=== PATIENT | male | born 1970 | race Hispanic/Latino ===

== ENCOUNTER 2022-12-15 10:31 | Observation (INO) | payer BC ==
[~2022-12-15] VITALS: Ht 172.7 cm; Wt 104.3 kg
[~2022-12-15 10:31] MED LIST: DEXAMETHASONE SOD PHOS INJ 4 MG/ML SDV ONE; KETOROLAC TROMETHAMINE 30 MG/ML VIAL ONE; LABETALOL HCL 5 MG/ML 20ML VIAL ONE; LIDOCAINE HCL 2% LOCAL INJ 5 ML SDV VIAL INJ ONE; METOCLOPRAMIDE HCL 10 MG/2ML VIAL ONE; ONDANSETRON HCL INJ 2MG/ML 2ML 2 MG/ML VIAL ONE; PROPOFOL IV EMULSION 10 MG/ML 20 ML VIAL ONE; ROCURONIUM BROMIDE 10 MG/ML 5ML VIAL IV ONE; SEVOFLURANE INHAL SOLN 250 ML PEN BTL ONE; SUCCINYLCHOLINE CHLORIDE 20 MG/ML 10ML VIAL ONE
[2022-12-15] MEDS ORDERED: ONDANSETRON HCL INJ 2MG/ML 2ML 2 MG/ML VIAL IV STA ×2 (11:04→13:19)
[2022-12-15] MEDS ORDERED: Morphine 4mg INJECTION 4 MG/ML INJ IV STA ×2 (11:04→13:19)
[2022-12-15] MEDS ORDERED: SODIUM CHLORIDE 0.9% 1000ML 1,000 ML IV STA (11:04)
[2022-12-15 11:14] LABS: BASOPHILS % 0.3 % (0.0-1.0); HEMATOCRIT 44.4 % (38.2-49.6); HEMOGLOBIN 15.6 g/dL (14.0-18.0); LYMPHOCYTES # (AUTO) 0.8 (1.0-3.2); LYMPHOCYTES % 6.6 % (18.0-39.1); MEAN CORPUSCULAR HEMOGLOBIN 28.1 pg (28-32); MEAN CORPUSCULAR HGB CONC 35.1 g/dL (31-35); MEAN CORPUSCULAR VOLUME 79.9 fL (81-99); MONOCYTES # (AUTO) 0.6 (0.2-0.8); MONOCYTES % 5.1 % (4.4-11.3); NEUTROPHILS # (AUTO) 10.1 (2.1-6.9); NEUTROPHILS % 87.7 % (38.7-80.0); PLATELET COUNT 183 x10e3/uL (140-360); RED BLOOD COUNT 5.56 x10e6/uL (4.3-5.7); WHITE BLOOD COUNT 11.45 x10e3/uL (4.8-10.8)
[2022-12-15 11:25] LABS: INR 1.08; PROTHROMBIN TIME 14.7 seconds (11.9-14.5)
[2022-12-15 11:26] LABS: PARTIAL THROMBOPLASTIN TIME 35.7 seconds (23.8-35.5)
[2022-12-15 11:34] LABS: ALBUMIN 4.3 g/dL (3.5-5.0); ALBUMIN/GLOBULIN RATIO 1.2 (0.8-2.0); ANION GAP 14.7 mmol/L (8-16); CALCIUM 9.5 mg/dL (8.4-10.2); CREATININE, SERUM 0.91 mg/dL (0.72-1.25); MAGNESIUM 1.6 MG/DL (1.3-2.1); POTASSIUM 3.7 mmol/L (3.5-5.1)
[2022-12-15] MEDS ORDERED: IOPAMIDOL 370 MG/ML 100 ML INFUS..BTL INJ ONE (12:28)
[2022-12-15] MEDS ORDERED: DICYCLOMINE HCL 20 MG/2 ML VIAL IM ONE (12:30)
[2022-12-15] MEDS ORDERED: SODIUM CHLORIDE 0.9% 1000ML 1,000 ML ONE (15:31)
[2022-12-15] MEDS: SODIUM CHLORIDE 0.9% 1000ML 1,000 ML IV SCH ×2 (15:32→21:35)
[2022-12-15 16:00] VITALS: BP 134/75; PULSE 58; PULSE 59; RESP 16; TEMP 98; O2SAT 98
[2022-12-15 16:26] VITALS: BP 129/68; PULSE 66; RESP 22; TEMP 98.7; O2SAT 96
[2022-12-15] MEDS: ONDANSETRON HCL INJ 2MG/ML 2ML 2 MG/ML VIAL IV PRN ×2 (18:11→22:25)
[2022-12-15] MEDS: Morphine 4mg INJECTION 4 MG/ML INJ IV PRN ×2 (18:12→22:25)
[2022-12-15 20:00] VITALS: BP 128/70; PULSE 72; RESP 18; TEMP 99; O2SAT 95
[2022-12-16] VITALS (7 sets, daily range): BP systolic 126–132; BP diastolic 67–76; PULSE 68–88; RESP 16–20; TEMP 97.7–98.9; O2SAT 93–100
[2022-12-16 00:11] LABS: CREATINE KINASE 159 IU/L (30-200)
[2022-12-16] MEDS: ONDANSETRON HCL INJ 2MG/ML 2ML 2 MG/ML VIAL IV PRN (02:51)
[2022-12-16] MEDS: Morphine 4mg INJECTION 4 MG/ML INJ IV PRN (02:51)
[2022-12-16 06:40] LABS: BASOPHILS % 0.2 % (0.0-1.0); EOSINOPHILS # (AUTO) 0.1 (0.0-0.4); EOSINOPHILS % 0.6 % (0.0-6.0); HEMATOCRIT 40.7 % (38.2-49.6); HEMOGLOBIN 14.2 g/dL (14.0-18.0); LYMPHOCYTES # (AUTO) 1.4 (1.0-3.2); MEAN CORPUSCULAR HEMOGLOBIN 28.3 pg (28-32); MEAN CORPUSCULAR HGB CONC 34.9 g/dL (31-35); MEAN CORPUSCULAR VOLUME 81.2 fL (81-99); MONOCYTES # (AUTO) 0.9 (0.2-0.8); MONOCYTES % 9.9 % (4.4-11.3); NEUTROPHILS # (AUTO) 6.7 (2.1-6.9); NEUTROPHILS % 74.1 % (38.7-80.0); PLATELET COUNT 135 x10e3/uL (140-360); RED BLOOD COUNT 5.01 x10e6/uL (4.3-5.7); RED CELL DISTRIBUTION WIDTH 14.2 % (11.7-14.4); WHITE BLOOD COUNT 9.07 x10e3/uL (4.8-10.8)
[2022-12-16 06:53] LABS: ALBUMIN 3.5 g/dL (3.5-5.0); ALBUMIN/GLOBULIN RATIO 1.1 (0.8-2.0); ANION GAP 11.7 mmol/L (8-16); CALCIUM 8.9 mg/dL (8.4-10.2); CREATININE, SERUM 0.84 mg/dL (0.72-1.25); POTASSIUM 3.7 mmol/L (3.5-5.1)
[2022-12-16] MEDS ORDERED: BUPIVACAINE HCL 0.5% INJ 30 ML VIAL INJ ONE (06:59)
[2022-12-16] MEDS ORDERED: HYDROMORPHONE 1MG/1ML INJ ONE (07:03)
[2022-12-16] MEDS ORDERED: SUGAMMADEX SODIUM 200 MG/2 ML VIAL IV ONE (07:03)
[2022-12-16] MEDS: SODIUM CHLORIDE 0.9% 1000ML 1,000 ML IV SCH ×3 (07:30→18:04)
[2022-12-16] MEDS ORDERED: ONDANSETRON HCL INJ 2MG/ML 2ML 2 MG/ML VIAL IV PRN (08:00)
[2022-12-16] MEDS ORDERED: ACETAMINOPHEN 325 MG TAB PO PRN (08:00)
[2022-12-16] MEDS ORDERED: HYDROCODONE/APAP 5MG-325MG TAB PO PRN (08:00)
[2022-12-16] MEDS ORDERED: MELATONIN 3 MG TAB PO PRN (11:00)
[2022-12-16] MEDS ORDERED: DOCUSATE SODIUM 100 MG CAP PO PRN (11:00)
[2022-12-16 11:19] LABS: CHOL/HDL RATIO 4.2 (3.9-4.7)
[2022-12-16] MEDS ORDERED: CEPHALEXIN500 MG PO ×2 (18:39→18:42)
[2022-12-16] MEDS ORDERED: ACETAMINOPHEN325 M1 PO ×2 (18:39→18:42)
[2022-12-16] MEDS ORDERED: METRONIDAZOLE500 MG PO ×2 (18:39→18:42)
[2022-12-16] MEDS ORDERED: Docusate Sodium PO ×2 (18:39→18:42)
[2022-12-16] MEDS ORDERED: SENNA LAX8.6 MG PO ×2 (18:39→18:42)
[2022-12-16] MEDS ORDERED: ONDANSETRON ODT4 MG PO (18:42)
== END 2022-12-16 19:50 | disposition home or self-care (01) ==
LOC: ER 10:37 → INTOOBSV 15:22 → ERHOLD 15:22 → MED/SURG2 15:50
PROVIDERS: ADMIT Internal Medicine; ATTEND Internal Medicine
DX: K80.00 Calculus of gallbladder with acute cholecystitis without obstruction (principal); K82.A1 Gangrene of gallbladder in cholecystitis; E87.1 Hypo-osmolality and hyponatremia; E66.9 Obesity, unspecified; Z13.1 Encounter for screening for diabetes mellitus; Z68.35 Body mass index [BMI] 35.0-35.9, adult; F17.220 Nicotine dependence, chewing tobacco, uncomplicated; Z11.52 Encounter for screening for COVID-19
CPT/HCPCS: 36415 ×2; 47562; 71045; 74177; 76705; 80053 ×2; 80061; 82550 ×2; 83036; 83690; 83735; 84484 ×2; 85025 ×2; 85610; 85730; 88304; 93005; 94799; 99284; C9113; G0378 ×2; J0330; J0500; J0690; J1100; J1170; J1885; J2001; J2270 ×2; J2405 ×2; J2543 ×2; J2704; J2765; J3490; J7030; Q9967; U0002